=== PATIENT | female | born 1965 | race Caucasian/White ===

== ENCOUNTER 2022-02-18 08:58 | Emergency (ER) | payer OTHER ==
[~2022-02-18] VITALS: Ht 160 cm; Wt 65.5 kg
--- OUTSIDE RECORDS SUMMARY | 2022-02-18 09:01 | XMS ---
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 Emmanuel VISIT COUNT (12 MO.) [address] [place] [address] 1 GONZALEZ Quinonez TOTAL 13 NOTE: Visits indicate total known visits. ED/UCC VISIT TRACKING (12 MO.) 02/18/2022 08:59 [facility] TYPE: Emergency COMPLAINT: - DIARRHEA, WEAKNESS 12[facility]14[facility]2021 12:32 [facility] DIAGNOSES: - Other fecal abnormalities - BLOOD IN STOOL 12/12/2021 23:43 [facility] [place] TYPE: Emergency DIAGNOSES: - Suicide attempt, initial encounter - Opioid dependence, uncomplicated - SI 12/11/2021 21:55 [facility] [place] [place] TYPE: Emergency DIAGNOSES: - BACK PAIN - Low back pain, unspecified 12/05/2021 16:25 [facility] DIAGNOSES: - Low back pain, unspecified - BACK PAIN 11/18/2021 09:27 [facility] OR TYPE: Emergency DIAGNOSES: - CHEST PAIN POSSIBLY ANXIETY OR GERD - Functional dyspepsia - Generalized anxiety disorder 06/11/2021 12:03 [email or web address] TYPE: Emergency DIAGNOSES: - MENTAL HEALTH - Other railroader (current) drug therapy - Visual hallucinations 06/08/2021 10:37 [email or web address] TYPE: Emergency DIAGNOSES: - Altered mental status, unspecified - ALTERED MENTAL STATUS 06/07/2021 12:25 [facility] OR TYPE: Emergency DIAGNOSES: - feeling weird - Transient alteration of awareness 06/01/2021 09:39 [email or web address] TYPE: Emergency DIAGNOSES: - Low back pain, unspecified - Other chronic pain - GROUND LEVEL FALL X3 DAYS AGO 05/30/2021 12:01 [facility] TYPE: Emergency DIAGNOSES: - Other chronic pain - BACK PAIN - Low back pain, unspecified 05/26/2021 14:25 [facility] [place] [place] TYPE: Emergency DIAGNOSES: - Noninfective gastroenteritis and colitis, unspecified - ABDOMINAL PAIN 05/02/2021 23:00 [facility] DIAGNOSES: - WEAKNESS - Cannabis use, unspecified with intoxication, uncomplicated - Bradycardia, unspecified INPATIENT VISIT TRACKING (12 MO.) 06/08/2021 10:37 [facility] OR TYPE: Medical Surgical DIAGNOSES: - Altered mental status, unspecified [email or web address]
[2022-02-18] MEDS ORDERED: VENTOLIN HFA18 GM INH (11:04)
[2022-02-18] MEDS ORDERED: FISH OIL 1,0001 EAC2 PO (11:04)
[2022-02-18] MEDS ORDERED: BACLOFEN20 MG PO (11:05)
[2022-02-18] MEDS ORDERED: LEVOTHYROXINE112 MCG PO (11:05)
[2022-02-18] MEDS ORDERED: ELIQUIS2.5 MG PO (11:05)
[2022-02-18] MEDS ORDERED: PANTOPRAZOLE SO40 MG PO (11:06)
[2022-02-18] MEDS ORDERED: SUMATRIPTAN SU100 MG PO (11:06)
[2022-02-18] MEDS ORDERED: GABAPENTIN300 MG PO (11:06)
[2022-02-18] MEDS ORDERED: LEVETIRACETAM1000 MG PO (11:07)
[2022-02-18] MEDS ORDERED: DIGOXIN250 MCG PO (11:07)
[2022-02-18] MEDS ORDERED: CLONAZEPAM0.5 MG PO (11:07)
[2022-02-18] MEDS ORDERED: LIDOCAINE1 EACH TD (11:09)
== END 2022-02-18 12:48 | disposition home or self-care (01) ==
LOC: ED 08:58
DX: R19.7 Diarrhea, unspecified (principal); R53.1 Weakness; Z20.822 Contact with and (suspected) exposure to COVID-19; Z88.1 Allergy status to other antibiotic agents; Z88.8 Allergy status to other drugs, medicaments and biological substances; Z79.899 Other long term (current) drug therapy; Z79.01 Long term (current) use of anticoagulants
CPT/HCPCS: 80053; 85025; 87502; 96361; 96374; 99284-25; C9803; J2405; J7030; U0003